=== PATIENT | female | born 1945 | race Caucasian/White ===

== ENCOUNTER 2021-01-09 15:13 | Inpatient (IN) | payer OTHER, BC ==
[2021-01-09] MEDS ORDERED: POTASSIUM CHLOR8 MEQ PO (17:30)
[2021-01-09] MEDS ORDERED: PRAMIPEXOLE PO (17:31)
[2021-01-09] MEDS ORDERED: TRIAMTERENE-HC1 EAC3 PO (17:33)
[2021-01-09] MEDS ORDERED: METFORMIN HCL1000 MG PO (17:33)
[2021-01-09] MEDS ORDERED: ECHINACEA400 MG PO (17:39)
[2021-01-09] MEDS ORDERED: BIOTIN1000 MCG PO (17:40)
[2021-01-09] MEDS ORDERED: [UNRECOGNIZED DRUG - OTHER] PO (17:41)
[2021-01-09] MEDS ORDERED: PIROXICAM20 MG PO (17:42)
--- NOTE | 2021-01-09 18:01 | NUR ---
1515 TELEPHONE REPORT RECEIVED FROM PIERRE LUNA. HE REPORTS "WEIGHT GAIN OF 20LBS OVER THE PAST COUPLE MONTHS, FEVER, COUGH BUT IS COVID NEGATIVE. SHE COMES FROM HOME AND LIVES WITH HER ." 1700 PATIENT ARRIVED TO ROOM 210 VIA STRETCHER AND AMBULATED TO BED WITHOUT COMPLICATION. PATIENT HEALTH HISTORY CHARTED PATIENT REPORTED MEDICAL HISTORY, SURGICAL HISTORY, AND CURRENT MEDICATIONS. DR. JONES PAGED ATT, AWAITING RETURN CALL. PATIENT REPORTS SHE NEVER WILL TAKE COVID 19 VACCINE. SHE REPORTS LIVING AT HOME WITH HER WHO IS ON HOSPICE AND THAT SHE DIDN'T EVEN WANT TO BE TRANSFERRED TO THIS HOSPITAL. 22G IN LEFT HAND PATENT AND SALINE LOCKED. NO C/O CHEST PAIN OR SHORTNESS OF BREATH ATT. +2-3 PITTING EDEMA NOTED TO BLE, PATIENT REPORTS THIS NORMAL OVER THE PAST COUPLE OF MONTHS. 1730 - DR. JONES PAGED AGAIN, NO CALL BACK FROM PREVIOUS PAGE. AWAITING RETURN CALL. 1750 - [employer] NOTIFIED THAT NO PHYSICAN CALL BACK FOR THIS DIRECT ADMIT AND THERE ARE NO ORDERS IN COMPUTER. ENCOURAGED TO CALL DR. BOOGIE. DR. BOOGIE THEN PAGED, AWAITING RETURN CALL ATT.
[2021-01-09 19:54] VITALS: BP 126/50
[2021-01-10] VITALS (7 sets, daily range): BP systolic 111–130; BP diastolic 40–55
[2021-01-10 03:41] LABS: HEMATOCRIT 34.5 % (37.0-47.0); HEMOGLOBIN 12.1 gm/dL (12.0-15.0); MCH 31.5 pg (26.0-34.0); MCV 90.2 fL (80.0-100.0); RBC 3.83 mil/uL (4.20-5.00); RDW 13.1 % (10.5-14.5); WBC 8.5 thou/uL (4.0-11.0)
[2021-01-10 04:12] LABS: ANION GAP 7 mmol/L (7-16); BUN 28 mg/dL (7-18); CALCIUM 9.2 mg/dL (8.5-10.1); CHLORIDE 101 mmol/L (98-107); CO2 29 mmol/L (21-32); CREATININE 1.3 mg/dL (0.6-1.0); GLUCOSE 131 mg/dL (74-106); POTASSIUM 3.6 mmol/L (3.5-5.1); SODIUM 137 mmol/L (136-145); TROPONIN-I <0.06 ng/mL (<0.06)
[2021-01-10] MEDS ORDERED: SYNTHROID88 MC1 PO (09:40)
--- NOTE | 2021-01-10 13:37 | NUR ---
ASSUMED PT CARE AT SHIFT CHANGE, PT A&OX4, DOING CROSS STITCH IN ROOM. THIS RN REVIEWED PT HOME MEDS AND INFORMED HOSPITALIST. PT HAS REFUSED A FEW MEDS ON EMAR AT THIS POINT. PT BP TRENDING LOWER, THIS RN INFORMED HOSPITALIST. PT CONTINUES TO HAVE 3+EDEMA ON BLE. HELPED PT TO RECLINE IN CHAIR FOR ELEVATION OF BLE. PT IS ON HOSPICE SERVICES, PT REQUESTS HER TIME IN HOSPITAL TO BE BRIEF.
--- NOTE | 2021-01-10 15:54 | NUR ---
THIS RN WENT TO MEASURE FOR ANGUS HOSE, PT REFUSED ANGUS HOSE. PT CALF MEASURES 36.5CM
[2021-01-11 04:25] VITALS: BP 132/63
[2021-01-11 07:15] VITALS: BP 138/72
[2021-01-11 11:25] VITALS: BP 115/42
[2021-01-11 15:10] VITALS: BP 120/34
[2021-01-11] MEDS ORDERED: LASIX 20 MG TAB20 MG PO (16:27)
[2021-01-11 16:58] VITALS: BP 120/34
--- NOTE | 2021-01-11 17:11 | NUR ---
PATIENT BEING DISCHARGED HOME. DISHARGE TEACHING AND EDUCATION DONE. IV AND TELE REMOVED. NO QUESTIONS OR CONCERNS AT TIME OF TEACHING. TAKE BY WHEELCHAIR TO SECURITY OFFICE TO WAIT FOR CAB. INFORMED PATIENT TO BE EXPECTING A CALL FROM TO FOLLOW UP ON HOME HEALTH CARE, PT ACKNOWLEDGED.
== END 2021-01-11 17:20 | disposition home or self-care (01) | DRG 291 ==
LOC: 2N 15:13
PROVIDERS: ADMIT Hospitalist; ATTEND Hospitalist
DX: I11.0 Hypertensive heart disease with heart failure (principal); I50.31 Acute diastolic (congestive) heart failure; N17.9 Acute kidney failure, unspecified; E03.9 Hypothyroidism, unspecified; E11.9 Type 2 diabetes mellitus without complications; Z88.1 Allergy status to other antibiotic agents; Z88.8 Allergy status to other drugs, medicaments and biological substances; Z88.2 Allergy status to sulfonamides; Z79.899 Other long term (current) drug therapy; Z79.84 Long term (current) use of oral hypoglycemic drugs; Z90.710 Acquired absence of both cervix and uterus; Z98.1 Arthrodesis status
CPT/HCPCS: 10081